=== PATIENT | female | born 1990 | race African-American/Black ===

== ENCOUNTER 2020-12-21 05:37 | Inpatient (IN) | payer OTHER ==
[2020-12-17 17:58] VITALS: BMI 32.5
[2020-12-21] MEDS ORDERED: MIDAZOLAM HCL 2 MG/2 ML SINGLE DOSE VIAL ONE ×3 (08:08→09:36)
[2020-12-21] MEDS ORDERED: BUPIVACAINE LIPOSOME/PF (EXPAREL) 266 MG/20 ML VIAL ONE (08:11)
[2020-12-21] MEDS ORDERED: BUPIVACAINE HCL 100 ML ONE (08:12)
[2020-12-21] MEDS ORDERED: PHENAZOPYRIDINE HCL 100 MG TABLET (FP) PO ONE (08:15)
[2020-12-21] MEDS ORDERED: PHENAZOPYRIDINE HCL 100 MG TABLET (FP) ONE (08:40)
[2020-12-21] MEDS ORDERED: VASOPRESSIN 20 UNITS/ML VIAL IV ONE (09:19)
[2020-12-21] MEDS ORDERED: fentaNYL CITRATE 250 MCG/5 ML VIAL ONE (10:37)
[2020-12-21] MEDS ORDERED: PROPOFOL 20 ML ONE ×2 (10:37)
[2020-12-21] MEDS ORDERED: ROCURONIUM BROMIDE 50 MG/5 ML SYRINGE ONE (10:38)
[2020-12-21] MEDS ORDERED: ceFAZolin SODIUM 1 GM VIAL IVPB ONE (10:56)
[2020-12-21] MEDS ORDERED: ceFAZolin SODIUM 1 GM VIAL ONE (11:33)
[2020-12-21] MEDS ORDERED: GLYCOPYRROLATE 0.2 MG/1 ML VIAL ONE (11:33)
[2020-12-21] MEDS ORDERED: DEXAMETHASONE SOD PHOSPHATE 4 MG/1 ML VIAL ONE (11:33)
[2020-12-21] MEDS ORDERED: NEOSTIGMINE METHYLSULFATE 0.5 MG/ML - 10 ML MDV ONE (11:33)
[2020-12-21] MEDS ORDERED: BISACODYL 5 MG TABLET.DR (FP) PO PRN (12:02)
[2020-12-21] MEDS ORDERED: ONDANSETRON 4 MG/2 ML VIAL IVPUSH PRN (12:02)
[2020-12-21] MEDS ORDERED: ACETAMINOPHEN 325 MG TABLET (FP) PO PRN (12:02)
[2020-12-21] MEDS ORDERED: oxyCODONE HCL 5 MG TABLET PO PRN ×2 (12:02)
[2020-12-21] MEDS ORDERED: DOCUSATE SODIUM 100 MG CAPSULE (FP) PO PRN (12:02)
[2020-12-21] MEDS ORDERED: LACTATED RINGERS SOLUTION 1,000 ML IV SCH (12:30)
[2020-12-21] MEDS ORDERED: IBUPROFEN 800 MG/8 ML IJ IVPB ONE (12:37)
[2020-12-21] MEDS: IBUPROFEN 800 MG/8 ML IJ IVPB PRN ×2 (12:40→21:20)
[2020-12-21] MEDS: CEFAZOLIN 1 GM/D5W 1 GM/50 ML BAG IVPB SCH (17:26)
[2020-12-21 19:58] LABS: HEMATOCRIT 32.3 % (32.4-45.2); HEMOGLOBIN 10.5 GM/dL (10.7-15.3); MCHC 32.6 g/dl (32.0-36.0); MEAN PLT VOLUME 10.1 fl (7.5-11.1); PLATELET COUNT 187 K/MM3 (134-434); RBC 3.51 M/mm3 (3.60-5.2); RDW 13.1 % (11.6-15.6); WHITE BLOOD COUNT 13.6 K/mm3 (4.0-10.0)
[2020-12-21 20:25] LABS: POTASSIUM 4.2 mmol/L (3.5-5.1)
[2020-12-21 20:30] LABS: BLOOD UREA NITROGEN 5.7 mg/dL (7-18); CALCIUM 9.2 mg/dL (8.5-10.1); CREATININE 0.8 mg/dL (0.55-1.3)
[2020-12-21] MEDS: SIMETHICONE 80 MG TAB.CHEW (FP) PO PRN (23:41)
[2020-12-22] MEDS: CEFAZOLIN 1 GM/D5W 1 GM/50 ML BAG IVPB SCH ×2 (01:26→09:16)
[2020-12-22 07:12] LABS: HEMATOCRIT 28.7 % (32.4-45.2); HEMOGLOBIN 9.7 GM/dL (10.7-15.3); MCH 30.8 pg (25.7-33.7); MCHC 33.8 g/dl (32.0-36.0); MEAN CELL VOLUME 90.9 fl (80-96); MEAN PLT VOLUME 10.1 fl (7.5-11.1); PLATELET COUNT 170 K/MM3 (134-434); RBC 3.16 M/mm3 (3.60-5.2); WHITE BLOOD COUNT 10.2 K/mm3 (4.0-10.0)
[2020-12-22 07:34] LABS: POTASSIUM 3.7 mmol/L (3.5-5.1)
[2020-12-22 07:36] LABS: CALCIUM 8.6 mg/dL (8.5-10.1)
[2020-12-22 07:39] LABS: CREATININE 0.6 mg/dL (0.55-1.3)
[2020-12-22] MEDS: IBUPROFEN 800 MG/8 ML IJ IVPB SCH ×2 (09:15→17:00)
[2020-12-22] MEDS: SIMETHICONE 80 MG TAB.CHEW (FP) PO PRN (09:17)
[2020-12-22] MEDS: ENOXAPARIN NA (PORCINE) 40 MG/0.4 ML DISP.SYRIN SQ SCH (09:18)
[2020-12-22] MEDS: ACETAMINOPHEN 500 MG TABLET (FP) PO SCH ×2 (12:40→18:19)
[2020-12-23] MEDS: IBUPROFEN 800 MG/8 ML IJ IVPB SCH (00:32)
[2020-12-23] MEDS: ACETAMINOPHEN 500 MG TABLET (FP) PO SCH ×4 (01:32→17:50)
[2020-12-23 08:47] VITALS: BP 102/60; PULSE 53; TEMP 98.7
[2020-12-23] MEDS ORDERED: BISACODYL 10 MG SUPP.RECT PR ONE (09:02)
[2020-12-23] MEDS: ENOXAPARIN NA (PORCINE) 40 MG/0.4 ML DISP.SYRIN SQ SCH (09:22)
== END 2020-12-23 18:10 | disposition home or self-care (01) | DRG 519 ==
LOC: JASUSAT 05:37 → J2C 12:02 → J3W 14:47
PROVIDERS: ADMIT Obstetrics & Gynecology; ATTEND Obstetrics & Gynecology
PROC: 0UB90ZZ Excision of Uterus, Open Approach (ICD-10-PCS; principal; 2020-12-21 10:00)
DX: D25.9 Leiomyoma of uterus, unspecified (principal); R10.2 Pelvic and perineal pain; N92.0 Excessive and frequent menstruation with regular cycle
CPT/HCPCS: 36415; 80048; 84703; 85027; 86850; 86900; 86901; 88305-TC; 93005; 93010; 94010; 94760